=== PATIENT | male | born 1955 | race Caucasian/White ===

== ENCOUNTER 2019-10-28 09:49 | Emergency (ER) | payer MEDICAID ==
[~2019-10-28] VITALS: Ht 182.9 cm; Wt 101.6 kg
[2019-10-28 09:50] VITALS: BP_SYST 108
--- NOTE | 2019-10-28 10:03 | NUR ---
PT BIB [facility] for Med clearence. Patient A&Ox4, ambulatory with handcuffs, skin pink & warm, pain 9, afebrile, denies N/V/D. Patient C/O right arm pain and left knee pain S/P fall x1week ago. Patient states he fell a week ago, did not seek medical at that time. Patient states he has HX of HTN & Hypothyroid.
--- NOTE | 2019-10-28 10:04 | NUR ---
Patient to ER chair 1 for evaluation. Side rails up.
--- NOTE | 2019-10-28 10:08 | NUR ---
ER Dr. Beth at bedside examining patient.
[2019-10-28 10:30] VITALS: BP_SYST 108
--- NOTE | 2019-10-28 10:30 | NUR ---
Patient given written and verbal discharge instructions and verbalizes understanding. ER MD discussed with patient the results and treatment provided. Patient in stable condition. ID arm band removed. No Rx given. Patient educated on pain management and to follow up with PMD. Pain Scale 8/10 tolerable for patient. Opportunity for questions provided and answered.
== END 2019-10-28 10:30 | disposition home or self-care (01) ==
LOC: SED 09:49
DX: M25.522 Pain in left elbow (principal); W18.39XA Other fall on same level, initial encounter; Y93.89 Activity, other specified; Y92.89 Other specified places as the place of occurrence of the external cause; Y99.8 Other external cause status
CPT/HCPCS: 99283